=== PATIENT | female | born 1980 | race Caucasian/White ===

== ENCOUNTER 2016-07-12 14:05 | Emergency (ER) | payer OTHER ==
[~2016-07-12] VITALS: Ht 160 cm; Wt 48.0 kg
[~2016-07-12 14:05] MED LIST: FENTANYL1 EAC3 TD
[2016-07-12] MEDS ORDERED: OXYCODONE HCL20 M1 PO (15:07)
[2016-07-12] MEDS ORDERED: BACLOFEN10 MG PO (15:07)
[2016-07-12] MEDS ORDERED: GABAPENTIN300 MG PO (15:09)
[2016-07-12 15:15] LABS: HEMATOCRIT 40.1 % (36.0-46.0); MCH 30.4 PG (29.0-34.0); MCHC 33.9 G/DL (30.0-36.0); MCV 89.7 FL (83-99); MEAN PLAT.VOLUME 9.5 uM^3 (9.5-12.4); PLATELET COUNT 314 K/uL (156-360); RBC DIS.WIDTH-SD 44.7 % (39-53); RED BLOOD COUNT 4.47 M/uL (3.80-5.20); WHITE BLOOD COUNT 10.4 K/uL (4.1-10.2)
[2016-07-12 15:23] LABS: CHLORIDE 111 mEq/L (99-109)
[2016-07-12 15:24] LABS: POTASSIUM 4.4 mEq/L (3.7-5.4); SODIUM 140 mEq/L (136-147)
[2016-07-12 15:25] LABS: GLUCOSE 74 mg/dL (70-99)
[2016-07-12 15:27] LABS: ANION GAP 8 MEQ/L (2-14)
[2016-07-12 15:29] LABS: GFR ESTIMATE (CALCULATED) > 59 mL/min/
[2016-07-12 15:30] LABS: UREA NITROGEN (BUN) 11 mg/dL (9-23)
[2016-07-12 15:37] LABS: TROP-I INTERPRETATION NEGATIVE; TROPONIN-I < 0.01 ng/mL (0.0-0.30)
[2016-07-12 17:24] LABS: SERUM ETHYL ALCOHOL < 10 mg/dL
[2016-07-12 19:11] LABS: ADD MIUA? NO; BILIRUBIN NEGATIVE; BLOOD NEGATIVE; COLOR YELLOW ((YELLOW)); GLUCOSE (STRIP) NEGATIVE; KETONES NEGATIVE; LEUKOCYTES NEGATIVE; NITRITE NEGATIVE; PROTEIN (STRIP) NEGATIVE; SPECIFIC GRAVITY 1.014 (1.000-1.030); UCUL ADDED? NO; UROBILINOGEN 0.2 MG/DL (0.2-1.0)
[2016-07-12 20:09] VITALS: BP 104/68
== END 2016-07-12 20:16 | disposition left against medical advice (07) ==
LOC: EME 14:05
PROVIDERS: Emergency Medicine
DX: T40.601A Poisoning by unspecified narcotics, accidental (unintentional), initial encounter (principal); Z53.20 Procedure and treatment not carried out because of patient's decision for unspecified reasons; I95.9 Hypotension, unspecified; F11.10 Opioid abuse, uncomplicated; T88.7XXA Unspecified adverse effect of drug or medicament, initial encounter; J43.9 Emphysema, unspecified; J44.9 Chronic obstructive pulmonary disease, unspecified; F17.200 Nicotine dependence, unspecified, uncomplicated
CPT/HCPCS: 71020; 80048; 81003; 83605; 84484; 85027; 87040; 93005; 99281; 99285; G0480; J2310; J7030